=== PATIENT | male | born 1970 | race Caucasian/White ===

== ENCOUNTER 2017-12-07 02:56 | Emergency (ER) | payer SELFPAY ==
[~2017-12-07] VITALS: Ht 180.3 cm; Wt 93.4 kg
[~2017-12-07 02:56] MED LIST: ALPR1T PO; ALPR1TAB11 PO; ALPR2TAB2 PO; ARIP2TAB10 PO; ARIP5TAB13 PO; CEPH500C PO; HYDR-1231 PO; HYDR-3454 PO; HYDR1TAB8 OP; LAMO150T3 PO; LAMO200T14 PO; NAPR-243 PO; SILV25CR TP; SSD50T TOP; VIBRID
--- OUTSIDE RECORDS SUMMARY | 2017-12-07 03:02 | XMS REPORT | Clinical Summary ---
Author Author 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 Disp. Refills Start End Date Status Date zolpidem (AMBIEN) 10 MG Take 10 mg by mouth Active tablet nightly as needed. vilazodone (VIIBRYD) 40 Take 40 mg by mouth. Active MG tablet lamoTRIgine (LAMICTAL) Take 150 mg by mouth Active 100 MG tablet daily. hydrocodone-acetaminophen Take 1 tablet by mouth 10 tablet 0 12/14/19 Active (NORCO) 7.5-325 MG every 8 (eight) hours as 13 needed for Pain. Active Problems Not on file Social History Tobacco Use Types Packs/Day Years Used Date Never Assessed Sex Assigned at Date Recorded Not on file Last Filed Vital Signs Vital Sign Reading Time Taken Blood Pressure 122/84 12/13/2012 1:46 PM CDT Pulse 98 12/13/2012 1:46 PM CDT Temperature 36.9 C (98.5 F) 12/13/2012 12:24 PM CDT Respiratory Rate 20 12/13/2012 1:46 PM CDT Oxygen Saturation 94% 12/13/2012 1:46 PM CDT Inhaled Oxygen - - Concentration Weight 90.3 kg (199 lb) 12/13/2012 12:24 PM CDT Height - - Body Mass Index - - Plan of Treatment Health Maintenance Due Date Last Done Comments Varicella Vaccines (1 of 1982 2 - 2-dose adolescent series) DTaP,Tdap,and Td Vaccines 1988 (1 - Tdap) Results Not on filefrom Last 3 Months
--- OUTSIDE RECORDS SUMMARY | 2017-12-07 03:03 | XMS REPORT ---
Author Author PATRICA MICHELLE Organization [facility] Address [address] [place] [address] Care Team Providers Care Direct Support Specialist Name Role Phone PATRICA MICHELLE Unavailable PROBLEMS Type Condition ICD9-CM Code [id number] Code Onset Dates Condition Status SNOMED Code Problem Social anxiety disorder F40.10 Active 51596844 Problem ADHD (attention deficit hyperactivity disorder), combined type F90.2 Active 76111096 Problem Generalized anxiety disorder F41.1 Active 37843937 Problem Bipolar II disorder F31.81 Active 47327116 Problem WESTON (generalized anxiety disorder) F41.1 Active 14397744 Problem Episode of recurrent major depressive disorder, unspecified depression episode severity F33.9 Active 896588322 Problem Primary hypertension I10 Active 67021997 ALLERGIES Substance Reaction Event Type Date Status Loxapine headache Drug Allergy Oct, Active Ultram nausea Drug Allergy Oct, Active Codeine Sulfate nausea Drug Allergy Oct, Active ENCOUNTERS Encounter Location Date Diagnosis [facility] [id number] [place] [address] Nov, [facility] [id number] [place] [address] 9772 Nov, [facility] [id number] [place] [address]- 3658 Oct, [facility] [id number] [place] [address]- 7654 Oct, Bipolar II disorder F31.81 ; ADHD (attention deficit hyperactivity disorder), combined type F90.2 ; Social anxiety disorder F40.10 and WESTON (generalized anxiety disorder) F41.1 [facility] [address] [address] Oct, Bipolar II disorder F31.81 ; WESTON (generalized anxiety disorder) F41.1 and Primary hypertension I10 [facility] [address] [facility] [id number] [place] [address] 2546 Oct, [facility] [address] [facility] [id number] [place] [address] 2546 Oct, [facility] [id number] [place] [address] Sep, Episode of recurrent major depressive disorder, unspecified depression episode severity F33.9 ; Primary hypertension I10 ; Generalized anxiety disorder F41.1 ; Bipolar II disorder F31.81 and Social anxiety disorder F40.10 [facility] [address] [facility] [id number] [place] [address] Sep, [facility] [address] [facility] [id number] [place] [address] 7914 Aug, [facility] [address] [place] [address] Aug, [facility] [id number] [place] [address] July, [facility] [id number] [place] [address] 98[address] Jun, [facility] [id number] [place] [address] 9[address] Jun, [facility] [id number] [address] 28 May, 2015 [facility] [address] [facility] [id number] [address]46 16 May, 2015 [facility] [id number] [place] [address] 15 May, 2015 [facility] [address] [facility] [id number] [place] [address] 2546 May, Bipolar II disorder F31.81 ; WESTON (generalized anxiety disorder) F41.1 and Social anxiety disorder F40.10 [facility] [id number] [address] May, [facility] [address] [place] [address] Apr, [facility] [address] [place] [address] 2546 Apr, [facility] [id number] [place] [address], [place] [address]- [address] Apr, [facility] [address] [id number] [place] [address] 2546 Apr, [facility] [address] [place] [address] 5[address] Mar, [facility] [address] [address] Feb, [facility] [address] [address] Feb, [facility] [address] [address] 6[address] Feb, [facility] [address] Jan, [facility] [address] Jan, [facility] [address] [address] 2541 Jan, [facility] [id number] [address] 2544 Jan, Bipolar 2 disorder F31.81 ; Generalized anxiety disorder F41.1 and Social phobia F40.10 [facility] [address] [address] 2546 Dec, [facility] [address] [address] 6[address] Nov, Other and unspecified bipolar disorders 296.89 ; Generalized anxiety disorder 300.02 and Social phobia 300.23 [facility] [address] [address] 16 Nov, 2014 [facility] [address] 15 Nov, 2014 [facility] [id number] [place] [address]- 7634 Oct, [facility] [id number] [place] [address]- 5601 Oct, [facility] [id number] [place] [address] 51852- 5263 Sep, [facility] [id number] [place] [address] 211162- 1040 Aug, Bipolar II disorder 296.89 ; Generalized anxiety disorder 300.02 and Social anxiety disorder 300.23 [facility] [address] [address]- 3[address] Aug, [facility] [address] [address]- 6170 July, [facility] [address] [address]- 6[address] July, [facility] [address] [address]- 0451 July, [facility] [address] [address]- 5058 Jun, [facility] [address] [address] Jun, [facility] [address] [address] May, [facility] [address] [address] May, [facility] [place] [facility] [address] [id number] [place] [address]- 9093 May, 2014 [facility] [place] [facility] [address] [id number] [place] [address]- 4140 May, 2014 [facility] [place] [facility] [address] [id number] [place] [address]- 0017 May, 2014 [facility] [place] [facility] [address] [id number] [place] [address]- 2885 May, 2014 [facility] [place] [facility] [address] [id number] [place] [address]- 0470 Apr, 2014 [facility] [place] [facility] [address] [id number] [place] [address]- 1419 Apr, 2014 [facility] [place] [facility] [address] [facility] [id number] [place] [address]- 8936 Apr, 2014 [facility] [place] [facility] [address] [id number] [place] [address]- 7632 Apr, 2014 [facility] [place] [facility] [address] [id number] [place] [address]- 8491 Apr, 2014 [facility] [place] [facility] [address] [facility] [id number] [place] [address]- 3830 Apr, 2014 [facility] [place] [facility] [address] [facility] [id number] [place] [address]- 2886 Apr, 2014 [facility] [place] [facility] [address] [id number] [place] [address]- 8012 Apr, 2014 [facility] [place] [facility] [address] [id number] [place] [address]- 4727 Apr, 2014 [facility] [place] [facility] [address] [id number] [place] [address]- 3791 Apr, 2014 [facility] [place] [facility] [address] [facility] [id number] [place] [address]- 8934 Feb, [facility] [place] [facility] [address] [id number] [place] [address]- 6998 Feb, [facility] [place] [facility] [address] [id number] [place] [address]- 3944 Feb, [facility] [place] [facility] [address] [id number] [place] [address] Feb, [facility] [place] [facility] [address] [id number] [place] [address]- 6636 Feb, [facility] [place] [facility] [address] [id number] [place] [address] Feb, [facility] [place] [facility] [address] [id number] [place] [address]- 1310 Feb, [facility] [place] [facility] [address] [id number] [place] [address]- 6357 Feb, [facility] [place] [facility] [address] [id number] [place] [address]- 8362 Feb, [facility] [place] [facility] [address] [id number] [place] [address]- 2074 Feb, [facility] [place] [facility] [address] [id number] [place] [address]- 1620 Dec, [facility] [place] [facility] [address] [facility] [id number] [place] [address]- 3411 Dec, [facility] [place] [facility] [address] [id number] [place] [address]- 3764 Dec, [facility] [place] [facility] [address] [id number] [place] [address]- 5218 Dec, [facility] [place] [facility] [address] [id number] [place] [address]- 7401 Dec, [facility] [place] [facility] [address] [id number] [place] [address]- 7061 Dec, [facility] [place] [facility] [address] [id number] [address] Dec, [facility] [place] [facility] [address] [id number] [place] [address]- 2292 Dec, [facility] [place] [facility] [address] [id number] [place] [address]- 4466 Dec, [facility] [place] [facility] [address] [id number] [place] [address]- 0201 Nov, [facility] [place] [facility] [address] [id number] [place] [address]- 2162 Nov, [facility] [place] [facility] [address] [id number] [place] [address]- 6104 Nov, [facility] [place] [facility] [address] [id number] [place] [address]- 7112 Nov, [facility] [place] [facility] [address] [id number] [place] [address]- 9890 Nov, [facility] [place] [facility] [address] [id number] [place] [address]- 1855 Nov, [facility] [place] [facility] [address] [id number] [place] [address]- 1034 Nov, [facility] [place] [facility] [address] [id number] [place] [address]- 1671 Nov, [facility] [place] [facility] [address] [id number] [place] [address]- 3798 Oct, [facility] [place] [facility] [address] [id number] [place] [address]- 2365 Oct, [facility] [place] [facility] [address] [id number] [place] [address]- 3087 Oct, [facility] [place] [facility] [address] [id number] [place] [address]- 1068 Oct, [facility] [place] [facility] [address] [id number] [place] [address]- 3119 Oct, [facility] [place] [facility] [address] [id number] [place] [address]- 1613 Oct, [facility] [place] [facility] [address] [id number] [place] [address]- 5497 Oct, [facility] [place] [facility] [address] [id number] [place] [address]- 2266 Oct, [facility] [place] [facility] [address] [id number] [place] [address]- 3419 Oct, [facility] [place] [facility] [address] [id number] [place] [address]- 9563 Sep, [facility] [place] [facility] [address] [id number] [place] [address]- 2418 Sep, [facility] [place] [facility] [address] [id number] [place] [address]- 0324 Sep, [facility] [place] [facility] [address] [id number] [place] [address]- 7768 Sep, [facility] [place] [facility] [address] [id number] [place] [address]- 3614 Sep, [facility] [place] [facility] [address] [id number] [place] [address]- 8028 Sep, [facility] [place] [facility] [address] [id number] [place] [address]- 8226 Sep, [facility] [place] [facility] [address] [id number] [place] [address]- 1589 Sep, [facility] [place] [facility] [address] [id number] [place] [address]- 6964 Sep, [facility] [place] [facility] [address] [id number] [place] [address]- 0092 Sep, [facility] [place] [facility] [address] [id number] [place] [address]- 0106 Aug, [facility] [place] [facility] [address] [id number] [place] [address]- 9957 Aug, [facility] [place] [facility] [id number] [address]- 6653 Aug, [facility] [id number] [address]- 4870 Aug, [facility] [address] [address]- 0763 Aug, [facility] [address] [address]- 7530 Aug, [facility] [address] [address]- 8080 Aug, [facility] [address] [address]- 4290 Aug, [facility] [address] [address]- 9761 July, [facility] [address] [address]- 8680 July, [facility] [address] [address]- 9940 Jun, [facility] [address] [address]- 0572 Jun, IMMUNIZATIONS No Known Immunizations SOCIAL HISTORY Never Assessed REASON FOR VISIT Blood Pressure follow up. ELA Beauchamp PLAN OF CARE Activity Details Follow Up prn Reason: VITAL SIGNS Height 72 in 2017-10-28 Weight 208 lbs 2017-10-28 Temperature 98.2 degrees Fahrenheit 2017-10-28 Heart Rate 79 bpm 2017-10-28 Respiratory Rate 20 2017-10-28 BMI 28.21 kg/m2 2017-10-28 Blood pressure systolic 132 mmHg 2017-10-28 Blood pressure diastolic 82 mmHg 2017-10-28 MEDICATIONS Medication Instructions Dosage Frequency Start Date End Date Duration Status Lamictal 25 MG Orally daily-repository #180 1 tablet every night 2 weeks, 2 tablets every night 2 weeks then take 3 tablets every night Oct, 30 day(s) Active Atorvastatin Calcium 20 mg Orally Once a day 1 tablet 24h Oct, 90 days Active RESULTS No Results PROCEDURES No Known procedures INSTRUCTIONS MEDICATIONS ADMINISTERED No Known Medications MEDICAL (GENERAL) HISTORY Type Description Date Medical History broken rib Medical History hypertension Surgical History carpal tunnel 2011 Hospitalization History [facility]iatric [facility] 2015
--- OUTSIDE RECORDS SUMMARY | 2017-12-07 03:03 | XMS REPORT ---
Author Author PATRICA MICHELLE Organization [facility] [place] Address [address] [place] [address] Care Team Providers Care Product Management Internship Name Role Phone PATRICA MICHELLE Unavailable PROBLEMS Type Condition ICD9-CM Code MCS10-MT Code Onset Dates Condition Status SNOMED Code Problem Social anxiety disorder F40.10 Active 89046986 Problem ADHD (attention deficit hyperactivity disorder), combined type F90.2 Active 37545958 Problem Generalized anxiety disorder F41.1 Active 28953204 Problem Bipolar II disorder F31.81 Active 45363237 Problem WESTON (generalized anxiety disorder) F41.1 Active 93398791 Problem Episode of recurrent major depressive disorder, unspecified depression episode severity F33.9 Active 581805270 Problem Primary hypertension I10 Active 61565590 ALLERGIES No Information ENCOUNTERS Encounter Location Date Diagnosis [facility] [place] [id number] [place] [address] 05964- 9570 Nov, [facility] [place] [id number] [place] [address] 60003- 0698 Nov, [facility] [place] [id number] [place] [address] 14027- 7369 Oct, [facility] [place] [id number] [place] [address] 87946- 1540 Oct, Bipolar II disorder F31.81 ; ADHD (attention deficit hyperactivity disorder), combined type F90.2 ; Social anxiety disorder F40.10 and WESTON (generalized anxiety disorder) F41.1 [facility] [place] [id number] [place] [address] 40979- 1151 16 Oct, 2017 Bipolar II disorder F31.81 ; WESTON (generalized anxiety disorder) F41.1 and Primary hypertension I10 [facility] [place] [id number] [place] [address] 14947- 2240 Oct, [facility] [place] [address] [address] Oct, [facility] [place] [id number] [address] 7266 Sep, Episode of recurrent major depressive disorder, unspecified depression episode severity F33.9 ; Primary hypertension I10 ; Generalized anxiety disorder F41.1 ; Bipolar II disorder F31.81 and Social anxiety disorder F40.10 [facility] [place] [address], [place] [address] 9202 Sep, [facility] [place] [id number] [place] [address] 64881- 1181 Aug, [facility] [place] [id number] [address] 0241 Aug, [facility] [place] [id number] [place] [address] 64450- 7945 July, [facility] [place] [id number] [address] 8918 Jun, [facility] [place] [id number] [place] [address] 4929 Jun, [facility] [place] [address], [place] [address] 6836 May, [facility] [place] [address], [place] [address] 7663 May, [facility] [place] [id number] [address] May, [facility] [place] [address] [address] May, Bipolar II disorder F31.81 ; WESTON (generalized anxiety disorder) F41.1 and Social anxiety disorder F40.10 [facility] [place] [address], [place] [address]- 7146 May, [facility] [place] [address], [place] [address]- 9969 Apr, [facility] [place] [address], [place] [address]- 0194 Apr, [facility] [place] [address], [place] [address]- 1776 Apr, [facility] [place] [id number] [place] [address] 35335- 1681 Apr, [facility] [place] [address], [place] [address]- 0769 Mar, [facility] [place] [id number] [place] [address], [place] [address] Feb, [facility] [place] [address] 4917 Feb, [facility] [place] [id number] [place] [address] 009074- 7303 Feb, [facility] [place] [address], [place] [address]- 1517 Jan, [facility] [place] [address], [place] [address] 4719 Jan, [facility] [place] [address] [address] Jan, [facility] [place] [address], [place] [address]- 5940 Jan, Bipolar 2 disorder F31.81 ; Generalized anxiety disorder F41.1 and Social phobia F40.10 [facility] [place] [address], [place] [address]- 8066 Dec, [facility] [place] [address], [place] [address]- 0646 Nov, Other and unspecified bipolar disorders 296.89 ; Generalized anxiety disorder 300.02 and Social phobia 300.23 [facility] [place] [address], [place] [address]- 7819 16 Nov, 2014 [facility] [address], [place] [address]- 5308 15 Nov, 2014 [facility] [address], [place] [address]- 0906 Oct, [facility] [place] [address], [place] [address]- 5928 Oct, [facility] [place] [address], [place] [address]- 7235 Sep, [facility] [place] [id number] [place] [address] 14033- 5752 Aug, Bipolar II disorder 296.89 ; Generalized anxiety disorder 300.02 and Social anxiety disorder 300.23 [facility] [place] [address], [place] [address]- 7244 Aug, [facility] [place] [address], [place] [address]- 2109 July, [facility] [place] [address], [place] [address]- 3903 July, [facility] [place] [address], [place] [address]- 7966 July, [facility] [place] [address], [place] [address]- 7294 Jun, [facility] [place] [address], [place] [address]- 2098 Jun, [facility] [address], [place] [address]- 6653 May, [facility] [address], [place] [address]- 2957 May, [facility] [place] [address] [id number], [place] [address]- 3070 May, [facility] [place] [facility] [address] [facility] [id number] [place] [address]- 2266 May, 2014 [facility] [place] [facility] [address] [id number] [place] [address]- 4145 May, 2014 [facility] [place] [facility] [address] [id number] [place] [address]- 6885 May, 2014 [facility] [place] [facility] [address] [id number] [place] [address]- 7564 Apr, 2014 [facility] [place] [facility] [address] [id number] [place] [address]- 7045 Apr, 2014 [facility] [place] [facility] [address] [id number] [place] [address]- 0091 Apr, 2014 [facility] [place] [facility] [address] [facility] [id number] [place] [address]- 7445 Apr, 2014 [facility] [place] [facility] [address] [facility] [id number] [place] [address]- 5935 Apr, 2014 [facility] [place] [facility] [address] [facility] [id number] [place] [address]- 8031 Apr, 2014 [facility] [place] [facility] [address] [facility] [id number] [place] [address]- 5919 Apr, 2014 [facility] [place] [facility] [id number] [place] [address]- 9508 Apr, 2014 [facility] [place] [facility] [address] [facility] [id number], [place] [address]- 4230 Apr, 2014 [facility] [place] [facility] [address] [facility] [id number] [place] [address]- 5530 Apr, 2014 [facility] [place] [facility] [address] [facility] [id number] [place] [address]- 5232 Feb, [facility] [place] [facility] [address] [facility] [id number], [place] [address]- 8734 Feb, [facility] [place] [facility] [address] [facility] [id number], [place] [address]- 9544 Feb, [facility] [place] [facility] [address] [id number] [place] [address]- 8898 Feb, [facility] [place] [facility] [address] [id number], [place] [address]- 0719 Feb, [facility] [place] [facility] [address] [facility] [id number] [place] [address]- 5964 Feb, [facility] [place] [facility] [address] [id number] [place] [address]- 2328 Feb, [facility] [place] [facility] [address] [facility] [id number] [place] [address]- 0357 Feb, [facility] [place] [facility] [address] [id number] [place] [address]- 9989 Feb, [facility] [place] [facility] [address] [facility] [id number], [place] [address]- 8234 Feb, [facility] [place] [facility] [address] [id number], [place] [address]- 7116 Dec, [facility] [place] [facility] [address] [facility] [id number], [place] [address]- 2026 Dec, [facility] [place] [facility] [address] [facility] [id number], [place] [address]- 1405 Dec, [facility] [place] [facility] [address] [facility] [id number], [place] [address]- 7676 Dec, [facility] [place] [facility] [address] [facility] [id number], [place] [address]- 0299 Dec, [facility] [place] [facility] [address] [id number], [place] [address]- 9010 Dec, [facility] [place] [facility] [address] [facility] [id number], [place] [address]- 9021 Dec, [facility] [place] [facility] [address] [facility] [id number], [place] [address]- 2347 Dec, [facility] [place] [facility] [address] [id number] [place] [address]- 5138 Dec, [facility] [place] [facility] [address] [id number] [place] [address]- 5486 23 Nov, 2013 [facility] [place] [facility] [address] [id number] [place] [address] 2546 Nov, 2013 [facility] [place] [facility] [address] [id number] [place] [address] 2546 Nov, 2013 [facility] [place] [facility] [address] [id number] [place] [address] 2547 Nov, 2013 [facility] [place] [facility] [address] [id number] [place] [address]- 2687 Nov, 2013 [facility] [place] [facility] [address] [id number] [place] [address]- 4169 Nov, 2013 [facility] [place] [facility] [address] [id number] [place] [address]- 1710 Nov, 2013 [facility] [place] [facility] [address] [id number] [place] [address]- 2366 Nov, 2013 [facility] [place] [facility] [address] [id number] [place] [address]- 4989 Oct, [facility] [place] [facility] [address] [id number] [place] [address]- 0709 Oct, [facility] [place] [facility] [address] [id number] [place] [address]- 1417 Oct, [facility] [place] [facility] [address] [id number] [place] [address]- 7791 Oct, [facility] [place] [facility] [address] [id number] [place] [address]- 1477 Oct, [facility] [place] [facility] [address] [id number] [place] [address]- 2540 Oct, [facility] [place] [facility] [address] [id number] [place] [address]- 1335 Oct, [facility] [place] [facility] [address] [id number] [place] [address]- 2466 Oct, [facility] [place] [facility] [address] [id number] [place] [address]- 1756 Oct, [facility] [place] [facility] [address] [id number] [place] [address]- 0070 Sep, [facility] [place] [facility] [address] [id number] [place] [address]- 9855 Sep, [facility] [place] [facility] [address] [id number] [place] [address]- 2085 Sep, [facility] [place] [facility] [address] [id number] [place] [address]- 6790 Sep, [facility] [place] [facility] [address] [id number] [place] [address]- 8201 Sep, [facility] [place] [facility] [address] [id number] [place] [address]- 1588 Sep, [facility] [place] [facility] [address] [id number] [place] [address]- 2371 Sep, [facility] [place] [facility] [address] [id number] [place] [address]- 4788 Sep, [facility] [place] [facility] [address] [id number] [place] [address]- 7059 Sep, [facility] [place] [facility] [address] [id number] [place] [address]- 5734 Sep, [facility] [place] [facility] [address] [id number] [place] [address]- 9695 Aug, [facility] [place] [facility] [address] [id number] [place] [address]- 4748 Aug, [facility] [place] [facility] [address] [id number] [place] [address]- 1877 Aug, [facility] [place] [facility] [address] [id number], [place] [address]- 2332 Aug, [facility] [place] [address] [id number], [place] [address]- 3517 Aug, [facility] [place] [address] [id number], [place] [address]- 6732 Aug, [facility] [place] [address] [id number], [place] [address]- 0661 Aug, [facility] [place] [address], [place] [address]- 4635 Aug, [facility] [place] [address], [place] [address]- 1292 July, [facility] [place] [address], [place] [address]- 3921 July, [facility] [place] [address], [place] [address]- 3284 Jun, [facility] [place] [address] [facility] [id number], [place] [address]- 9170 Jun, IMMUNIZATIONS No Known Immunizations SOCIAL HISTORY Never Assessed REASON FOR VISIT Requests return call PLAN OF CARE VITAL SIGNS MEDICATIONS Medication Instructions Dosage Frequency Start Date End Date Duration Status Atorvastatin Calcium 20 mg Orally Once a day 1 tablet 24h Oct, 90 days Active Vistaril 50 mg Orally every 6 hrs 1 capsule as needed 6h Oct, 30 day(s) Active RESULTS No Results PROCEDURES No Known procedures INSTRUCTIONS MEDICATIONS ADMINISTERED No Known Medications MEDICAL (GENERAL) HISTORY Type Description Date Medical History broken rib Medical History hypertension Surgical History carpal tunnel 2012 Hospitalization History [facility]iatric - [facility]
--- OUTSIDE RECORDS SUMMARY | 2017-12-07 03:04 | XMS REPORT ---
Author Author OREN COATS e[employer] Address Unknown Phone Unavailable Care Team Providers Care Chemical Production Machine Operator Name Role Phone OREN COATS CP Unavailable Allergies No Known Allergies Problems Problem Type Condition Code Onset Dates Condition Status Problem Family history of diabetes mellitus V18.0 Active Problem Generalized anxiety disorder 300.02 Active Problem Other and unspecified bipolar disorders 296.89 Active Problem Encounter for long-term (current) use of other medications V58.69 Active Problem Essential hypertension, benign 401.1 Active Problem Generalized hyperhidrosis 780.8 Active Problem Social phobia 300.23 Active Problem Attention deficit disorder of childhood without mention of hyperactivity 314.00 Active Medications Medication Code System Code Instructions Start Date End Date Status Dosage Xanax [facility] [address]-18 1 MG Orally. Take 1.5 tab in the AM & HS. Take 1 tab twice daily as needed for anxiety May 31, 2014 1 tablet Results No Known Results Summary Purpose eClinicalWorks Submission
--- OUTSIDE RECORDS SUMMARY | 2017-12-07 03:04 | XMS REPORT ---
Author Author OREN COATS [employer] Address Unknown Phone Unavailable Care Team Providers Care Export Manager Name Role Phone OREN COATS CP Unavailable [...] without mention of hyperactivity 314.00 Active Medications No Known Medications Results No Known Results Summary Purpose eClinicalWorks Submission
--- OUTSIDE RECORDS SUMMARY | 2017-12-07 03:04 | XMS REPORT ---
Author Author OREN COATS [employer] Address Unknown Phone Unavailable Care Team Providers Care Fishing Tackle Repairer Name Role Phone OREN COATS CP Unavailable [...] Start Date End Date Status Dosage Xanax [facility] [address]-80 1 MG Orally. Take 1.5 tab in the AM & HS. Take 1 tab twice daily as needed for anxiety May 31, 2014 1 tablet Lamictal [facility] [address]-08 100 MG Orally Once a day 3 tablets Results No Known Results Summary Purpose eClinicalWorks Submission
--- OUTSIDE RECORDS SUMMARY | 2017-12-07 03:04 | XMS REPORT ---
Author OREN iVdal [employer] Address Unknown Phone Unavailable Care Team Providers Care Water Manager Name Role Phone OREN COATS CP Unavailable Allergies, Adverse Reactions, Alerts Substance Reaction Event Type Loxapine headache Drug Allergy Ultram nausea Drug Allergy Codeine Sulfate nausea Drug Allergy Problems Problem Type Condition Code Onset Dates Condition Status Assessment Generalized anxiety disorder F41.1 Active Problem Family history of diabetes mellitus V18.0 Active Assessment Bipolar 2 disorder F31.81 Active Assessment Social phobia F40.10 Active Problem Generalized anxiety disorder 300.02 Active [...] Start Date End Date Status Dosage Xanax [facility] [address]-05 1 MG Orally Take 1.5 tab in the AM & HS. Take 1 tab twice daily as needed for anxiety May 31, 2014 1 tablet Lamictal [facility] [address]-75 100 MG Orally Once a day 3 tablets Lisinopril [facility] [address]-24 20 MG Orally Once a day TAKE 1 TABLET BY MOUTH EVERY DAY Ambien [facility] [address]-69 10 MG Orally Once at night for sleep May 03, 2014 1 tablet Procedures Procedure Coding System Code Date Office Visit, Est Pt., Level 4 CPT-4 38149 Jan 17, 2015 Vital Signs Date/Time: Jan 17, 2015 Cardiac Monitoring Heart Rate 76 bpm Weight 206.3 lbs Height 72 in BMI 27.98 Index Blood Pressure Diastolic 85 mmHg Blood Pressure Systolic 150 mmHg Results No Known Results Summary Purpose eClinicalWorks Submission
--- OUTSIDE RECORDS SUMMARY | 2017-12-07 03:04 | XMS REPORT ---
Author Author OREN COATS Organization [employer] Address Unknown Phone Unavailable Care Team Providers Care Waste Machine Tender Name Role Phone OREN COATS CP Unavailable Allergies No Known Allergies Problems Problem Type Condition ICD-9 Code Onset Dates Condition Status Problem Family [...] Instructions Start Date End Date Status Dosage Lamictal [facility] [address]-03 100 MG Orally Once a day 3 tablets Results No Known Results Summary Purpose eClinicalWorks Submission
--- OUTSIDE RECORDS SUMMARY | 2017-12-07 03:04 | XMS REPORT ---
Author Author OREN COATS [employer] Address Unknown Phone Unavailable Care Team Providers Care Welt Cutter Name Role Phone OREN COATS CP Unavailable [...]
--- OUTSIDE RECORDS SUMMARY | 2017-12-07 03:04 | XMS REPORT ---
Author Author OREN COATS e[employer] Address Unknown Phone Unavailable Care Team Providers Care Navy Seal Name Role Phone OREN COATS CP Unavailable [...] Start Date End Date Status Dosage Xanax [facility] [address]-85 1 MG Orally 4 times a day May 31, 2014 1 tablet Ambien [facility] [address]-99 10 MG Orally Once a day May 03, 2014 0.5-1 tablet by Oral route 1 time per day PRN for sleep Results No Known Results Summary Purpose eClinicalWorks Submission
--- OUTSIDE RECORDS SUMMARY | 2017-12-07 03:04 | XMS REPORT ---
Author Author PATRICA MICHELLE Organization [facility] Address [address] [place] [address] Care Team Providers Care Artificial Marble Worker Name Role Phone PATRICA MICHELLE Unavailable PROBLEMS Type Condition ICD9-CM Code PQA11-PX Code Onset Dates Condition Status SNOMED Code Problem Social anxiety disorder F40.10 Active 97174116 Problem ADHD (attention deficit hyperactivity disorder), combined type F90.2 Active 31203080 Problem Generalized anxiety disorder F41.1 Active 11890623 Problem Bipolar II disorder F31.81 Active 34782306 Problem WESTON (generalized anxiety disorder) F41.1 Active 32873948 Problem Episode of recurrent major depressive disorder, unspecified depression episode severity F33.9 Active 748338322 Problem Primary hypertension I10 Active 69890407 ALLERGIES No Information ENCOUNTERS Encounter Location Date Diagnosis [facility] [id number] [place] [address]700- 3949 Nov, [facility] [id number] [place] [address] 11817- 0520 Nov, [facility] [id number] [place] [address] 81170- 5044 Oct, [facility] [id number] [place] [address] 27164- 2777 Oct, Bipolar II disorder F31.81 ; ADHD (attention deficit hyperactivity disorder), combined type F90.2 ; Social anxiety disorder F40.10 and WESTON (generalized anxiety disorder) F41.1 [facility] [id number] [place] [address] 60602- 7491 16 Oct, 2017 Bipolar II disorder F31.81 ; WESTON (generalized anxiety disorder) F41.1 and Primary hypertension I10 [facility] [id number] [place] [address]01- 9137 Oct, [facility] [address] [address] Oct, [facility] [id number] [address] Sep, Episode of recurrent major depressive disorder, unspecified depression episode severity F33.9 ; Primary hypertension I10 ; Generalized anxiety disorder F41.1 ; Bipolar II disorder F31.81 and Social anxiety disorder F40.10 [facility] [address], [place] [address] 09[address] Sep, [facility] [id number] [place] [address] 81757- 5582 Aug, [facility] [id number] [address] 76[address] Aug, [facility] [id number] [place] [address] 43008- 0241 July, [facility] [id number] [address] 09[address] Jun, [facility] [id number] [place] [address] 0205 Jun, [facility] [address], [place] [address] 9793 May, [facility] [address], [place] [address]- 8094 May, [facility] [id number] [address] May, [facility] [address] [address] May, Bipolar II disorder F31.81 ; WESTON (generalized anxiety disorder) F41.1 and Social anxiety disorder F40.10 [facility] [address], [place] [address] 6916 May, [facility] [address], [place] [address]- 0694 Apr, [facility] [address], [place] [address] 3814 Apr, [facility] [address], [place] [address]- 9456 Apr, [facility] [id number] [place] [address] 72304- 9980 Apr, [facility] [address], [place] [address] 2640 Mar, [facility] [id number] [place] [address], [place] 36[address] Feb, [facility] [address] 1770 Feb, [facility] [address] [place] [address] 247684- 4411 Feb, [facility] [address], [place] [address]- 5786 Jan, [facility] [address], [place] [address]- 9100 Jan, [facility] [address] [address] Jan, [facility] [address], [place] [address]- 4738 Jan, Bipolar 2 disorder F31.81 ; Generalized anxiety disorder F41.1 and Social phobia F40.10 [facility] [address], [place] [address]- 3346 Dec, [facility] [address], [place] [address]- 0286 Nov, Other and unspecified bipolar disorders 296.89 ; Generalized anxiety disorder 300.02 and Social phobia 300.23 [facility] [address], [place] [address]- 9077 16 Nov, 2014 [facility] [address], [place] [address]- 3980 15 Nov, 2014 [facility] [address], [place] [address]- 2946 Oct, [facility] [address], [place] [address]- 3291 Oct, [facility] [address], [place] [address]- 5766 Sep, [facility] [address] [place] [address] 26116- 2838 Aug, Bipolar II disorder 296.89 ; Generalized anxiety disorder 300.02 and Social anxiety disorder 300.23 [facility] [address], [place] [address]- 4430 Aug, [facility] [address], [place] [address]- 1706 July, [facility] [address], [place] [address]- 1924 July, [facility] [address], [place] [address]- 7890 July, [facility] [address], [place] [address]- 9450 Jun, [facility] [address], [place] [address]- 2909 Jun, [facility] [address], [place] [address]- 1392 May, [facility] [address], [place] [address]- 7642 May, [facility] [id number], [place] [address]- 0380 May, [facility] [place] [facility] [address] [facility] [id number] [place] [address]- 6476 May, 2014 [facility] [place] [facility] [address] [id number] [place] [address]- 9291 May, 2014 [facility] [place] [facility] [address] [id number] [place] [address]- 1235 May, 2014 [facility] [place] [facility] [address] [id number] [place] [address]- 7323 Apr, 2014 [facility] [place] [facility] [address] [id number] [place] [address]- 0061 Apr, 2014 [facility] [place] [facility] [address] [id number] [place] [address]- 5891 Apr, 2014 [facility] [place] [facility] [address] [facility] [id number] [place] [address]- 4468 Apr, 2014 [facility] [place] [facility] [address] [facility] [id number] [place] [address]- 9938 Apr, 2014 [facility] [place] [facility] [address] [facility] [id number] [place] [address]- 3002 Apr, 2014 [facility] [place] [facility] [address] [facility] [id number] [place] [address]- 5762 Apr, 2014 [facility] [place] [facility] [id number] [place] [address]- 3178 Apr, 2014 [facility] [place] [facility] [address] [facility] [id number], [place] [address]- 5536 Apr, 2014 [facility] [place] [facility] [address] [facility] [id number] [place] [address]- 9900 Apr, 2014 [facility] [place] [facility] [address] [facility] [id number] [place] [address]- 7860 Feb, [facility] [place] [facility] [address] [facility] [id number], [place] [address]- 4705 Feb, [facility] [place] [facility] [address] [facility] [id number], [place] [address]- 4995 Feb, [facility] [place] [facility] [address] [id number] [place] [address]- 3130 Feb, [facility] [place] [facility] [address] [id number], [place] [address]- 5575 Feb, [facility] [place] [facility] [address] [facility] [id number] [place] [address]- 9879 Feb, [facility] [place] [facility] [address] [id number] [place] [address]- 6092 Feb, [facility] [place] [facility] [address] [facility] [id number] [place] [address]- 0579 Feb, [facility] [place] [facility] [address] [id number] [place] [address]- 1136 Feb, [facility] [place] [facility] [address] [facility] [id number], [place] [address]- 8353 Feb, [facility] [place] [facility] [address] [id number], [place] [address]- 5193 Dec, [facility] [place] [facility] [address] [facility] [id number], [place] [address]- 3483 Dec, [facility] [place] [facility] [address] [facility] [id number], [place] [address]- 0436 Dec, [facility] [place] [facility] [address] [facility] [id number], [place] [address]- 1137 Dec, [facility] [place] [facility] [address] [facility] [id number], [place] [address]- 6977 Dec, [facility] [place] [facility] [address] [id number], [place] [address]- 3981 Dec, [facility] [place] [facility] [address] [facility] [id number], [place] [address]- 0854 Dec, [facility] [place] [facility] [address] [facility] [id number], [place] [address]- 7545 Dec, [facility] [place] [facility] [address] [id number] [place] [address]- 2989 Dec, [facility] [place] [facility] [address] [id number] [place] [address]- 3986 23 Nov, 2013 [facility] [place] [facility] [address] [id number] [place] [address] 2546 Nov, 2013 [facility] [place] [facility] [address] [id number] [place] [address] 2546 Nov, 2013 [facility] [place] [facility] [address] [id number] [place] [address] 2542 Nov, 2013 [facility] [place] [facility] [address] [id number] [place] [address]- 0429 Nov, 2013 [facility] [place] [facility] [address] [id number] [place] [address]- 5981 Nov, 2013 [facility] [place] [facility] [address] [id number] [place] [address]- 5964 Nov, 2013 [facility] [place] [facility] [address] [id number] [place] [address]- 8693 Nov, 2013 [facility] [place] [facility] [address] [id number] [place] [address]- 0553 Oct, [facility] [place] [facility] [address] [id number] [place] [address]- 9857 Oct, [facility] [place] [facility] [address] [id number] [place] [address]- 0573 Oct, [facility] [place] [facility] [address] [id number] [place] [address]- 9203 Oct, [facility] [place] [facility] [address] [id number] [place] [address]- 8350 Oct, [facility] [place] [facility] [address] [id number] [place] [address]- 2547 Oct, [facility] [place] [facility] [address] [id number] [place] [address]- 5092 Oct, [facility] [place] [facility] [address] [id number] [place] [address]- 5158 Oct, [facility] [place] [facility] [address] [id number] [place] [address]- 9491 Oct, [facility] [place] [facility] [address] [id number] [place] [address]- 2718 Sep, [facility] [place] [facility] [address] [id number] [place] [address]- 7130 Sep, [facility] [place] [facility] [address] [id number] [place] [address]- 4911 Sep, [facility] [place] [facility] [address] [id number] [place] [address]- 4577 Sep, [facility] [place] [facility] [address] [id number] [place] [address]- 2835 Sep, [facility] [place] [facility] [address] [id number] [place] [address]- 4470 Sep, [facility] [place] [facility] [address] [id number] [place] [address]- 3207 Sep, [facility] [place] [facility] [address] [id number] [place] [address]- 1053 Sep, [facility] [place] [facility] [address] [id number] [place] [address]- 7084 Sep, [facility] [place] [facility] [address] [id number] [place] [address]- 8939 Sep, [facility] [place] [facility] [address] [id number] [place] [address]- 9659 Aug, [facility] [place] [facility] [address] [id number] [place] [address]- 3185 Aug, [facility] [place] [facility] [address] [id number] [place] [address]- 8492 Aug, [facility] [place] [facility] [address] [id number], [place] [address]- 3256 Aug, [facility] [address], [place] [address]- 3398 Aug, [facility] [id number], [place] [address]- 9903 Aug, [facility] [address], [place] [address]- 0949 Aug, [facility] [address], [place] [address]- 0940 Aug, [facility] [address], [place] [address]- 3237 July, [facility] [address], [place] [address]- 7415 July, [facility] [address], [place] [address]- 1176 Jun, [facility] [id number], [place] [address]- 8994 Jun, IMMUNIZATIONS No Known Immunizations SOCIAL HISTORY Never Assessed REASON FOR VISIT Lab Results PLAN OF CARE VITAL SIGNS MEDICATIONS Medication Instructions Dosage Frequency Start Date End Date Duration Status Atorvastatin Calcium 20 mg Orally Once a day 1 tablet 24h Oct, 30 day(s) Active RESULTS No Results PROCEDURES No Known procedures INSTRUCTIONS MEDICATIONS ADMINISTERED No Known Medications MEDICAL (GENERAL) HISTORY Type Description Date Medical History broken rib Medical History hypertension Surgical History carpal tunnel 2012 Hospitalization History Psychiatric - [facility] [place] 2016
--- OUTSIDE RECORDS SUMMARY | 2017-12-07 03:04 | XMS REPORT ---
Author Author OREN COATS [employer] Address Unknown Phone Unavailable Care Team Providers Care Stage Set Up Worker Name Role Phone OREN COATS CP Unavailable Allergies No Known Allergies Problems Problem Type Condition Code Onset Dates Condition Status Problem Generalized hyperhidrosis 780.8 Active Problem Attention deficit disorder of childhood without mention of hyperactivity 314.00 Active Problem Essential hypertension, benign 401.1 Active Problem Family history of diabetes mellitus V18.0 Active Problem WESTON (generalized anxiety disorder) F41.1 Active Problem Social anxiety disorder F40.10 Active Problem Bipolar II disorder F31.81 Active Problem Other and unspecified bipolar disorders 296.89 Active Problem Social phobia 300.23 Active Problem Encounter for long-term (current) use of other medications V58.69 Active Problem Generalized anxiety disorder 300.02 Active Medications Medication Code System Code Instructions Start Date End Date Status Dosage Lisinopril [facility] [address]-98 20 mg Orally Once a day 1 tablet Xanax [facility] [address]-95 1 MG Orally in the AM & HS. Take 1 tab additional up to twice daily as needed for anxiety May 31, 2014 1 1/2 tablets Ambien [facility] [address]-40 10 mg Orally Once at night for sleep; can take an additional 1/2 tab at 2am if needed May 03, 2014 1 tablet Results No Known Results Summary Purpose [employer] Submission
--- OUTSIDE RECORDS SUMMARY | 2017-12-07 03:04 | XMS REPORT ---
Author Author OREN COATS [employer] Address Unknown Phone Unavailable Care Team Providers Care Senior Research Consultant Name Role Phone OREN COATS CP Unavailable [...]
--- OUTSIDE RECORDS SUMMARY | 2017-12-07 03:04 | XMS REPORT ---
Author Author PATRICA MICHELLE Organization [facility] Address [address] [place] [address] Care Team Providers Care Regional Sales Executive Name Role Phone PATRICA MICHELLE Unavailable PROBLEMS Type Condition ICD9-CM Code LUC12-IP Code Onset Dates Condition Status SNOMED Code Problem Social anxiety disorder F40.10 Active 42733273 Problem ADHD (attention deficit hyperactivity disorder), combined type F90.2 Active 93315455 Problem Generalized anxiety disorder F41.1 Active 44658779 Problem Bipolar II disorder F31.81 Active 06426473 Problem WESTON (generalized anxiety disorder) F41.1 Active 79784774 Problem Episode of recurrent major depressive disorder, unspecified depression episode severity F33.9 Active 474340273 Problem Primary hypertension I10 Active 09714312 ALLERGIES Substance Reaction Event Type Date Status Loxapine headache Drug Allergy Sep, Active Ultram nausea Drug Allergy Sep, Active Codeine Sulfate nausea Drug Allergy Sep, Active ENCOUNTERS Encounter Location Date Diagnosis [facility] [id number] [place] [address] Nov, [facility] [id number] [place] [address] 08747- 5950 Nov, [facility] [id number] [place] [address] 79826- 9997 Oct, [facility] [id number] [place] [address] 94006- 2463 Oct, Bipolar II disorder F31.81 ; ADHD (attention deficit hyperactivity disorder), combined type F90.2 ; Social anxiety disorder F40.10 and WESTON (generalized anxiety disorder) F41.1 [facility] [address] [address] Oct, Bipolar II disorder F31.81 ; WESTON (generalized anxiety disorder) F41.1 and Primary hypertension I10 [facility] [address] [facility] [id number] [place] [address] 2546 Oct, [facility] [address] [facility] [id number] [place] [address] 2546 Oct, [facility] [id number] [place] [address] Sep, Episode of recurrent major depressive disorder, unspecified depression episode severity F33.9 ; Primary hypertension I10 ; Generalized anxiety disorder F41.1 ; Bipolar II disorder F31.81 and Social anxiety disorder F40.10 [facility] [address] [facility] [id number] [place] [address] Sep, [facility] [address] [facility] [id number] [place] [address]- 6[address] Aug, [facility] [id number] [place] [address] Aug, [facility] [address] [id number] [place] [address] 1693 July, [facility] [address] [id number] [place] [address] 2796 Jun, [facility] [address] [id number] [place] [address] 4[address] Jun, [facility] [id number] [address] 28 May, 2015 [facility] [address] [facility] [id number] [address] 2546 16 May, 2015 [facility] [address] [id number] [place] [address] 15 May, 2015 [facility] [address] [facility] [id number] [place] [address] 2546 May, Bipolar II disorder F31.81 ; WESTON (generalized anxiety disorder) F41.1 and Social anxiety disorder F40.10 [facility] [address] [id number] [address] 6[address] May, [facility] [id number] [place] [address] 1276 Apr, [facility] [id number] [place] [address] 2546 Apr, [facility] [id number] [place] [address], [place] [address]- 46[address] Apr, [facility] [address] [id number] [place] [address] 2546 Apr, [facility] [id number] [place] [address]- 5915 Mar, [facility] [id number] [address] Feb, [facility] [id number] [address] 84[address] Feb, [facility] [id number] [address] 288[address] Feb, [facility] [id number] [address] Jan, [facility] [id number] [address] Jan, [facility] [address] [address] 2547 Jan, [facility] [address] [id number] [address] 2549 Jan, Bipolar 2 disorder F31.81 ; Generalized anxiety disorder F41.1 and Social phobia F40.10 [facility] [address] [address] 2546 Dec, [facility] [address] [address] 8[address] Nov, Other and unspecified bipolar disorders 296.89 ; Generalized anxiety disorder 300.02 and Social phobia 300.23 [facility] [address] [address] 16 Nov, 2014 [facility] [address] [address] 15 Nov, 2014 [facility] [id number] [place] [address] 21253- 9973 Oct, [facility] [id number] [place] [address] 71837- 3799 Oct, [facility] [id number] [place] [address] 87525- 0830 Sep, [facility] [id number] [place] [address] 322046- 0367 Aug, Bipolar II disorder 296.89 ; Generalized anxiety disorder 300.02 and Social anxiety disorder 300.23 [facility] [address] [address]- 1897 Aug, [facility] [address] [address]- 5551 July, [facility] [address] [address]- 3554 July, [facility] [address] [address]- 4245 July, [facility] [address] [address]- 4854 Jun, [facility] [id number] [address] Jun, [facility] [id number] [address] May, [facility] [id number] 69[address] May, [facility] [place] [facility] [address] [id number] [place] [address]- 0323 May, 2014 [facility] [place] [facility] [address] [id number] [place] [address]- 4061 May, 2014 [facility] [place] [facility] [address] [id number] [place] [address]- 3260 May, 2014 [facility] [place] [facility] [address] [id number] [place] [address]- 5633 May, 2014 [facility] [place] [facility] [address] [id number] [place] [address]- 7838 Apr, 2014 [facility] [place] [facility] [address] [id number] [place] [address]- 1340 Apr, 2014 [facility] [place] [facility] [address] [facility] [id number] [place] [address]- 6013 Apr, 2014 [facility] [place] [facility] [address] [id number] [place] [address]- 8423 Apr, 2014 [facility] [place] [facility] [address] [id number] [place] [address]- 2309 Apr, 2014 [facility] [place] [facility] [address] [facility] [id number] [place] [address]- 6738 Apr, 2014 [facility] [place] [facility] [address] [facility] [id number] [place] [address]- 2844 Apr, 2014 [facility] [place] [facility] [address] [id number] [place] [address]- 0411 Apr, 2014 [facility] [place] [facility] [address] [id number] [place] [address]- 6120 Apr, 2014 [facility] [place] [facility] [address] [id number] [place] [address]- 8586 Apr, 2014 [facility] [place] [facility] [address] [facility] [id number] [place] [address]- 6434 Feb, [facility] [place] [facility] [address] [id number] [place] [address]- 5731 Feb, [facility] [place] [facility] [address] [id number] [place] [address]- 4025 Feb, [facility] [place] [facility] [address] [id number] [place] [address] Feb, [facility] [place] [facility] [address] [id number] [place] [address]- 2771 Feb, [facility] [place] [facility] [address] [id number] [place] [address] Feb, [facility] [place] [facility] [address] [id number] [place] [address]- 1807 Feb, [facility] [place] [facility] [address] [id number] [place] [address]- 2105 Feb, [facility] [place] [facility] [address] [id number] [place] [address]- 5337 Feb, [facility] [place] [facility] [address] [id number] [place] [address]- 9446 Feb, [facility] [place] [facility] [address] [id number] [place] [address]- 9259 Dec, [facility] [place] [facility] [address] [facility] [id number] [place] [address]- 7875 Dec, [facility] [place] [facility] [address] [id number] [place] [address]- 2856 Dec, [facility] [place] [facility] [address] [id number] [place] [address]- 9993 Dec, [facility] [place] [facility] [address] [id number] [place] [address]- 8676 Dec, [facility] [place] [facility] [address] [id number] [place] [address]- 4042 Dec, [facility] [place] [facility] [address] [id number] [address] Dec, [facility] [place] [facility] [address] [id number] [place] [address]- 9201 Dec, [facility] [place] [facility] [address] [id number] [place] [address]- 6661 Dec, [facility] [place] [facility] [address] [id number] [place] [address]- 4942 Nov, [facility] [place] [facility] [address] [id number] [place] [address]- 5487 Nov, [facility] [place] [facility] [address] [id number] [place] [address]- 1199 Nov, [facility] [place] [facility] [address] [id number] [place] [address]- 6116 Nov, [facility] [place] [facility] [address] [id number] [place] [address]- 5301 Nov, [facility] [place] [facility] [address] [id number] [place] [address]- 3583 Nov, [facility] [place] [facility] [address] [id number] [place] [address]- 3031 Nov, [facility] [place] [facility] [address] [id number] [place] [address]- 0872 Nov, [facility] [place] [facility] [address] [id number] [place] [address]- 3608 Oct, [facility] [place] [facility] [address] [id number] [place] [address]- 6275 Oct, [facility] [place] [facility] [address] [id number] [place] [address]- 6485 Oct, [facility] [place] [facility] [address] [id number] [place] [address]- 0828 Oct, [facility] [place] [facility] [address] [id number] [place] [address]- 3401 Oct, [facility] [place] [facility] [address] [id number] [place] [address]- 5840 Oct, [facility] [place] [facility] [address] [id number] [place] [address]- 6323 Oct, [facility] [place] [facility] [address] [id number] [place] [address]- 5711 Oct, [facility] [place] [facility] [address] [id number] [place] [address]- 0960 Oct, [facility] [place] [facility] [address] [id number] [place] [address]- 3899 Sep, [facility] [place] [facility] [address] [id number] [place] [address]- 6725 Sep, [facility] [place] [facility] [address] [id number] [place] [address]- 0892 Sep, [facility] [place] [facility] [address] [id number] [place] [address]- 3319 Sep, [facility] [place] [facility] [address] [id number] [place] [address]- 4346 Sep, [facility] [place] [facility] [address] [id number] [place] [address]- 3758 Sep, [facility] [place] [facility] [address] [id number] [place] [address]- 9548 Sep, [facility] [place] [facility] [address] [id number] [place] [address]- 4740 Sep, [facility] [place] [facility] [address] [id number] [place] [address]- 2638 Sep, [facility] [place] [facility] [address] [id number] [place] [address]- 7597 Sep, [facility] [place] [facility] [address] [id number] [place] [address]- 0560 Aug, [facility] [place] [facility] [address] [id number] [place] [address]- 8479 Aug, [facility] [place] [facility] [id number] [address]- 2365 Aug, [facility] [id number] [address]- 3766 Aug, [facility] [address] [address]- 3038 Aug, [facility] [address] [id number] [address]- 2905 Aug, [facility] [address] [address]- 5889 Aug, [facility] [address] [address]- 9504 Aug, [facility] [address] [address]- 0042 July, [facility] [address] [address]- 1604 July, [facility] [address] [address]- 6928 Jun, [facility] [address] [address]- 0062 Jun, IMMUNIZATIONS No Known Immunizations SOCIAL HISTORY Never Assessed REASON FOR VISIT Establish [facility]-MIKAEL colon PLAN OF CARE Activity Details Follow Up 4 Weeks Reason:lab VITAL SIGNS Height 72 in 2017-10-12 Weight 207.0 lbs 2017-10-12 Temperature 98.2 degrees Fahrenheit 2017-10-12 Heart Rate 95 bpm 2017-10-12 Respiratory Rate 20 2017-10-12 Oximetry on room air:96 % 2017-10-12 BMI 28.07 kg/m2 2017-10-12 Blood pressure systolic 126 mmHg 2017-10-12 Blood pressure diastolic 94 mmHg 2017-10-12 MEDICATIONS Unknown Medications RESULTS No Results PROCEDURES Procedure Date Ordered Result Body Site COMPLETE CBC W/AUTO DIFF WBC October 12, 2017 ASSAY THYROID STIM HORMONE October 12, 2017 COMPREHEN METABOLIC PANEL October 12, 2017 LIPID PANEL October 12, 2017 ASSAY OF FREE THYROXINE October 12, 2017 INSTRUCTIONS MEDICATIONS ADMINISTERED No Known Medications MEDICAL (GENERAL) HISTORY Type Description Date Medical History broken rib Medical History hypertension Surgical History carpal tunnel 2011 Hospitalization History Psychiatric - [facility] in [place] 2015
--- OUTSIDE RECORDS SUMMARY | 2017-12-07 03:05 | XMS REPORT ---
Author Author OREN COATS [employer] Address Unknown Phone Unavailable Care Team Providers Care Dimensional Inspector Name Role Phone OREN COATS CP Unavailable [...]
--- OUTSIDE RECORDS SUMMARY | 2017-12-07 03:05 | XMS REPORT ---
Author Author OREN COATS [employer] Address Unknown Phone Unavailable Care Team Providers Care Habitat Biologist Name Role Phone OREN COATS CP Unavailable [...]
--- OUTSIDE RECORDS SUMMARY | 2017-12-07 03:05 | XMS REPORT ---
Author Author OREN COATS [employer] Address Unknown Phone Unavailable Care Team Providers Care Ferryboat Captain Name Role Phone OREN COATS CP Unavailable [...]
--- OUTSIDE RECORDS SUMMARY | 2017-12-07 03:05 | XMS REPORT ---
Author Author OREN OCATS [employer] Address Unknown Phone Unavailable Care Team Providers Care Cellophane Casting Machine Repairer Name Role Phone OREN COATS CP [...]
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
--- OUTSIDE RECORDS SUMMARY | 2017-12-07 03:05 | XMS REPORT ---
Author Author OREN COATS [employer] Address Unknown Phone Unavailable Care Team Providers Care Drop Wire Builder Name Role Phone OREN COATS CP Unavailable Allergies, Adverse Reactions, Alerts Substance Reaction Event Type Ultram nausea Drug Allergy Codeine Sulfate nausea Drug Allergy Problems Problem Type Condition ICD-9 Code Onset Dates Condition Status Assessment Generalized anxiety disorder 300.02 Active Problem Family history of diabetes mellitus V18.0 Active Assessment Other and unspecified bipolar disorders 296.89 Active Assessment Social phobia 300.23 Active Problem Generalized anxiety disorder 300.02 Active [...] Instructions Start Date End Date Status Dosage Ambien [facility] [address]-83 10 MG Orally Once at night for sleep May 03, 2014 1 tablet Xanax [facility] [address]-96 1 MG Orally 4 times per day for anxiety May 31, 2014 1 tablet Loxapine Succinate [facility] [address]-27 10 MG Orally Twice a day Nov 29, 2014 1 capsule Lisinopril [facility] [address]-63 20 MG Orally Once a day TAKE 1 TABLET BY MOUTH EVERY DAY Lamictal [facility] [address]-65 100 MG Orally Once a day 3 tablets Procedures Procedure Coding System Code Date Office Visit, Est Pt., Level 4 CPT-4 03541 Nov 29, 2014 Vital Signs Date/Time: Nov 29, 2014 Temperature 97.7 F Weight 215.2 lbs Height 72 in BMI 29.18 Index Blood Pressure Diastolic 80 mmHg Blood Pressure Systolic 130 mmHg Cardiac Monitoring Heart Rate 92 bpm Results No Known Results Summary Purpose [employer] Submission
--- OUTSIDE RECORDS SUMMARY | 2017-12-07 03:05 | XMS REPORT ---
Author Author OREN COATS [employer] Address Unknown Phone Unavailable Care Team Providers Care Javascript Front End Developer Name Role Phone OREN COATS CP Unavailable [...]
[2017-12-07] MEDS ORDERED: LIDOCAINE 2% VISCOUS 15 ML UDC PO ONE (03:15)
[2017-12-07] MEDS ORDERED: AMOXICILLIN 500 MG (POLYMOX) CAP PO ONE (03:30)
[2017-12-07] MEDS ORDERED: LIDOCAINE 1% INJ 20 ML 20 ML VIAL INJ ONE (03:45)
[2017-12-07] MEDS ORDERED: BUPIVACAINE 0.5% 30 ML (SENSORCAINE) VIAL INJ ONE (03:45)
[2017-12-07] MEDS ORDERED: HYDR-3812 PO (04:08)
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
[2017-12-07] MEDS ORDERED: AMOX500C2 PO (04:09)
[2017-12-07 04:15] VITALS: BP 159/114
== END 2017-12-07 04:19 | disposition home or self-care (01) ==
LOC: EDUNIT# 02:56 → ER 02:58
DX: K02.9 Dental caries, unspecified (principal); E78.00 Pure hypercholesterolemia, unspecified; I10 Essential (primary) hypertension; F41.9 Anxiety disorder, unspecified; F32.9 Major depressive disorder, single episode, unspecified; F17.210 Nicotine dependence, cigarettes, uncomplicated; Z87.19 Personal history of other diseases of the digestive system; Z88.5 Allergy status to narcotic agent; Z88.6 Allergy status to analgesic agent
CPT/HCPCS: 99284